=== PATIENT | male | born 1995 | race Caucasian/White ===

== ENCOUNTER → 2019-09-06 15:54 | Outpatient (BNVA) | payer BC, SELFPAY | PROVIDERS: Family Provider General Practice; PCP General Practice; Visit Provider Psychiatry & Neurology Psychiatry | DX: F33.1 Major depressive disorder, recurrent, moderate (principal) | CPT/HCPCS: 99214; 99215 ==

== ENCOUNTER → 2019-11-05 11:10 | Outpatient (BNVA) | payer BC, SELFPAY | PROVIDERS: Family Provider General Practice; PCP General Practice; Visit Provider Psychiatry & Neurology Psychiatry | DX: F41.1 Generalized anxiety disorder (principal); F33.2 Major depressive disorder, recurrent severe without psychotic features | CPT/HCPCS: 99213 ==

== ENCOUNTER → 2020-01-28 07:46 | Outpatient (BNVA) | payer BC, SELFPAY | PROVIDERS: Family Provider General Practice; PCP General Practice; Visit Provider Psychiatry & Neurology Psychiatry | DX: F41.1 Generalized anxiety disorder (principal); F33.2 Major depressive disorder, recurrent severe without psychotic features | CPT/HCPCS: 99214 ==

== ENCOUNTER → 2020-02-24 07:41 | Outpatient (BNVA) | payer BC, SELFPAY | PROVIDERS: Family Provider General Practice; PCP General Practice; Visit Provider Psychiatry & Neurology Psychiatry | DX: F41.1 Generalized anxiety disorder (principal); F33.2 Major depressive disorder, recurrent severe without psychotic features | CPT/HCPCS: 99213 ==

== ENCOUNTER → 2020-03-18 07:47 | Outpatient (BNVA) | payer BC, SELFPAY | PROVIDERS: Family Provider General Practice; PCP General Practice; Visit Provider Psychiatry & Neurology Psychiatry | DX: F41.1 Generalized anxiety disorder (principal); F33.2 Major depressive disorder, recurrent severe without psychotic features | CPT/HCPCS: 99213 ==

== ENCOUNTER → 2020-06-10 08:11 | Outpatient (BNVA) | payer BC, SELFPAY | PROVIDERS: Family Provider General Practice; PCP General Practice; Visit Provider Psychiatry & Neurology Psychiatry | DX: F41.1 Generalized anxiety disorder (principal); F33.2 Major depressive disorder, recurrent severe without psychotic features | CPT/HCPCS: 99213 ==

== ENCOUNTER → 2020-07-08 07:45 | Outpatient (BNVA) | payer BC, SELFPAY | PROVIDERS: Family Provider General Practice; PCP General Practice; Visit Provider Psychiatry & Neurology Psychiatry | DX: F41.1 Generalized anxiety disorder (principal); F33.2 Major depressive disorder, recurrent severe without psychotic features | CPT/HCPCS: 99213 ==

== ENCOUNTER → 2020-09-02 07:55 | Outpatient (BNVA) | payer BC, SELFPAY | PROVIDERS: Family Provider General Practice; PCP General Practice; Visit Provider Psychiatry & Neurology Psychiatry | DX: F41.1 Generalized anxiety disorder (principal); F33.2 Major depressive disorder, recurrent severe without psychotic features | CPT/HCPCS: 99213 ==

== ENCOUNTER → 2020-11-25 08:29 | Outpatient (BNVA) | payer BC, SELFPAY | PROVIDERS: Family Provider General Practice; PCP General Practice; Visit Provider Psychiatry & Neurology Psychiatry | DX: F41.1 Generalized anxiety disorder (principal); F33.2 Major depressive disorder, recurrent severe without psychotic features | CPT/HCPCS: 99213 ==